=== PATIENT | male | born 1955 ===

== ENCOUNTER 2016-08-14 23:18 | Emergency (ER) | payer SELFPAY ==
[2016-08-14 23:40] VITALS: BP 112/73
[2016-08-15 00:13] LABS: Anion Gap 17 mmol/L; Blood Urea Nitrogen 13 mg/dL (9-20); Calcium 8.7 mg/dL (8.4-10.2); Carbon Dioxide 22 mmol/L (22-30); Chloride 104.3 mmol/L (98-107); Glucose 99 mg/dL (75-100); Potassium 4.2 mmol/L (3.6-5.0); Sodium 139 mmol/L (137-145)
[2016-08-15 00:17] LABS: Basophils % (Auto) 0.9 % (0.0-1.8); Eosinophils % (Auto) 0.7 % (0.0-4.3); Hematocrit 41.7 % (35.5-45.6); Mean Corpuscular HGB Conc 34 % (32-34); Mean Corpuscular Hemoglobin 32 pg (28-32); Mean Corpuscular Volume 94 fl (84-94); Platelet Count 197 K/mm3 (140-440); Red Blood Count 4.44 M/mm3 (3.65-5.03); Red Cell Distribution Width 13.5 % (13.2-15.2)
--- NOTE | 2016-08-17 01:24 | ED Elopement Review ---
ED Pt Elopement review - Results review Lab results: Laboratory Tests 08/14/16 08/14/16 23:39 23:39 WBC 8.0 RBC 4.44 Hgb 14.0 Hct 41.7 MCV 94 MCH 32 MCHC 34 RDW 13.5 Plt Count 197 Lymph % (Auto) 35.3 H [place] % (Auto) 8.4 H Eos % (Auto) 0.7 Baso % (Auto) 0.9 Lymph # 2.8 [place] # 0.7 Eos # 0.1 Baso # 0.1 Seg Neutrophils % 54.7 Seg Neutrophils # 4.4 Sodium 139 Potassium 4.2 Chloride 104.3 Carbon Dioxide 22 Anion Gap 17 BUN 13 Creatinine 1.3 Estimated GFR 56 BUN/Creatinine Ratio 10.00 Glucose 99 Calcium 8.7 Troponin T < 0.010 - Call Back decision Pt Call Back Decision: Pt to F/U with PMD (patient needs to follow up with a home sales consultant within the next 48-72 hours, will return to the ER right away for evaluation of chest pain and abnormal EKG.)
== END 2016-08-15 10:00 | disposition left against medical advice (07) ==
LOC: ED 23:18
DX: R07.89 Other chest pain (principal); Z53.21 Procedure and treatment not carried out due to patient leaving prior to being seen by health care provider
CPT/HCPCS: 36415; 80048; 84484; 85025; 93005; 93010